=== PATIENT | female | born 1985 | race Caucasian/White ===

== ENCOUNTER 2018-11-23 20:14 | Inpatient (IN) | payer BC ==
[~2018-11-23 20:14] MED LIST: Lidocaine 2% MPF 10 ML AMP (For Epidural Use) ONE
[2018-11-23 21:14] VITALS: BMI 29.2
[2018-11-23] MEDS ORDERED: Ibuprofen 800 MG TAB PO PRN (21:16)
[2018-11-23] MEDS ORDERED: hydrALAZINE 20 MG/ML VIAL SLOW IVP PRN (21:16)
[2018-11-23] MEDS ORDERED: Acetaminophen 500 MG TAB PO PRN (21:16)
[2018-11-23] MEDS ORDERED: Misoprostol 200 MCG TAB PR PRN (21:16)
[2018-11-23] MEDS ORDERED: Promethazine HCl 25 MG/ML VIAL IM PRN (21:16)
[2018-11-23] MEDS ORDERED: NS / Oxytocin 40 units/1000ml 1,000 ML IV PRN (21:16)
[2018-11-23] MEDS ORDERED: Diphenoxylate HCl/Atropine Tablet PO PRN ×2 (21:16)
[2018-11-23] MEDS ORDERED: Ondansetron PF 4 MG/2 ML Vial IVP PRN (21:16)
[2018-11-23] MEDS ORDERED: Zolpidem Tartrate 5 MG TAB PO PRN (21:16)
[2018-11-23] MEDS ORDERED: Carboprost 250 MCG/ML AMP IM PRN (21:16)
[2018-11-23] MEDS ORDERED: Lidocaine 1% (PF) 30 ML VIAL SC PRN (21:16)
[2018-11-23] MEDS ORDERED: Docusate 100 MG CAP PO PRN (21:16)
[2018-11-23] MEDS ORDERED: Methylergonovine 0.2 MG/ML VIAL IM PRN (21:16)
[2018-11-23] MEDS ORDERED: HYDROcodone/Acetaminophen 5/325 mg Tablet PO PRN ×2 (21:16)
[2018-11-23] MEDS: Lactated Ringer's 1,000 ML IV SCH (21:20)
[2018-11-23] MEDS ORDERED: NS w/ Oxytocin 10 units 500 ML IV SCH (21:30)
[2018-11-23 21:37] LABS: Hemoglobin 12.2 g/dL (12.0-16.0); Mean Corpuscular HGB CONC 34.1 g/dL (32.0-36.0); Mean Corpuscular Hemoglobin 29.8 pg (27.0-31.0); Mean Corpuscular Volume 87.3 fL (78.0-98.0); Platelet Count 198 thou/uL (130-400); RBC Distribution Width 12.1 % (11.5-14.5); White Blood Cell (WBC) Count 9.7 thou/uL (4.8-10.8)
[2018-11-23 22:18] LABS: Syphilis Antibody Nonreactive (Nonreactive); Syphilis Antibody Index 0.03 S/CO (<1.00 Non-Reactive)
[2018-11-23] MEDS: Misoprostol 100 MCG TAB VAG SCH (22:23)
[2018-11-23] MEDS ORDERED: Calcium Carbonate 500 MG ChewTAB PO PRN (22:27)
[2018-11-23 23:01] LABS: HBSAg Index 0.24 S/CO (0-0.99); Hep B Surf Ag Non-Reactive S/CO (NonReactive)
[2018-11-24] MEDS: Misoprostol 100 MCG TAB VAG SCH ×2 (02:06→05:48)
[2018-11-24] MEDS: Butorphanol Tartrate 1 MG/ML VIAL SLOW IVP PRN ×3 (03:18→07:02)
--- NOTE | 2018-11-24 07:12 | PDOC.LDHP ---
Labor and Delivery H&P Chief complaint: scheduled induction HPI: 33 y/o at 38 weeks for medical induction of labor. Current gestational age (weeks): 38 Due date: 12/06/18 Grav: 3 Para: 2 Current complications: gestational hypertension Abnormal US findings: No Current medications: pre-betty vitamins Previous surgical history: none Allergies/Adverse Reactions: Allergies Allergy/AdvReac Type Severity Reaction Status Date / Time No Known Allergies Allergy Unverified 11/23/18 20:43 Social history: none - Physical Exam Vital signs reviewed and normal: yes General: NAD, resting Heart: RRR Lungs: CTAB Abdomen: gravid Extremeties: no edema FHT: category 1 - Assessment L&D Assessment: medically indicated induction - Plan Plan: admit to L&D, cervical ripening
[2018-11-24] MEDS: NS w/ Oxytocin 10 units 500 ML IV SCH (09:53)
[2018-11-24] MEDS: Lactated Ringer's 1,000 ML IV SCH (12:00)
[2018-11-24] MEDS ORDERED: Fentanyl 4 mcg/Bup 0.1% Cadd 100 ML ONE (12:23)
[2018-11-24] MEDS ORDERED: Bisacodyl 10 MG SUPP PR PRN (21:41)
[2018-11-24] MEDS ORDERED: Lanolin Ointment 7 GM TUBE TOP PRN (21:41)
[2018-11-24] MEDS ORDERED: Zolpidem Tartrate 5 MG TAB PO PRN (21:41)
[2018-11-24] MEDS ORDERED: Ondansetron PF 4 MG/2 ML Vial IVP PRN (21:41)
[2018-11-24] MEDS ORDERED: Benzocaine-Menthol 82.5 ML CAN TOP PRN (21:41)
[2018-11-24] MEDS ORDERED: Methylergonovine 0.2 MG/ML VIAL IM PRN (21:41)
[2018-11-24] MEDS ORDERED: Milk Of Magnesia 30 ML UDCUP PO PRN (21:41)
[2018-11-24] MEDS ORDERED: NS / Oxytocin 40 units/1000ml 1,000 ML IV SCH (21:41)
[2018-11-24] MEDS ORDERED: Preparation H Ointment 28 GM TUBE PR PRN (21:41)
[2018-11-24] MEDS ORDERED: diphenhydrAMINE 25 MG CAP PO PRN (21:41)
[2018-11-24] MEDS ORDERED: Promethazine HCl 25 MG/ML VIAL IM PRN (21:41)
[2018-11-24] MEDS ORDERED: hydrALAZINE 20 MG/ML VIAL SLOW IVP PRN (21:41)
[2018-11-24] MEDS ORDERED: Misoprostol 200 MCG TAB VAG PRN (21:41)
[2018-11-24] MEDS ORDERED: NS / Oxytocin 40 units/1000ml 1,000 ML ONE (21:55)
[2018-11-24] MEDS: Ibuprofen 800 MG TAB PO SCH (22:04)
[2018-11-24] MEDS: HYDROcodone/Acetaminophen 5/325 mg Tablet PO PRN (22:05)
[2018-11-25] MEDS: Misoprostol 100 MCG TAB VAG SCH ×2 (00:48→00:49)
[2018-11-25] MEDS: Lactated Ringer's 1,000 ML IV SCH (00:50)
[2018-11-25] MEDS: NS w/ Oxytocin 10 units 500 ML IV SCH (00:51)
[2018-11-25] MEDS: HYDROcodone/Acetaminophen 5/325 mg Tablet PO PRN ×4 (01:58→19:05)
[2018-11-25] MEDS: Ibuprofen 800 MG TAB PO SCH ×3 (05:23→23:50)
[2018-11-25 06:51] LABS: #Basophils 0.1 thou/uL (0.0-0.2); #Eosinphils 0.1 thou/uL (0.0-0.7); #Lymphocytes 2.6 thou/uL (1.20-3.40); #Monocytes 0.7 thou/uL (0.11-0.59); #Neutrophils 8.7 thou/uL (1.40-6.50); %Basophils 0.5 % (0.0-1.0); %Eosinophils 0.6 % (0.0-10.0); %Lymphocytes 21.5 % (21.0-51.0); %Monocytes 5.5 % (0.0-10.0); %Neutrophils 71.8 % (42.0-75.0); Hemoglobin 12.2 g/dL (12.0-16.0); Mean Corpuscular HGB CONC 34.4 g/dL (32.0-36.0); Mean Corpuscular Hemoglobin 30.2 pg (27.0-31.0); Mean Corpuscular Volume 87.7 fL (78.0-98.0); Platelet Count 135 thou/uL (130-400); RBC Distribution Width 12.3 % (11.5-14.5); Red Blood Cell (RBC) Count 4.04 mill/uL (4.20-5.40); White Blood Cell (WBC) Count 12.2 thou/uL (4.8-10.8)
[2018-11-25] MEDS: Ferrous Sulfate 325 MG TAB PO SCH ×2 (08:43→17:15)
[2018-11-25] MEDS: Docusate Calcium (SURFAK) 240 MG CAP PO SCH ×2 (08:43→21:29)
[2018-11-25] MEDS ORDERED: Adacel (T-DAP) 0.5 ML SYRINGE IM ONE (09:00)
[2018-11-25] MEDS ORDERED: Varicella virus, LIVE 0.5 ML VIAL SC ONE (09:00)
[2018-11-25] MEDS ORDERED: Sodium Chloride 0.9% 10 ML ONE ×3 (10:41→22:51)
[2018-11-25] MEDS: Ketorolac Tromethamine 30 MG/ML VIAL IVP SCH ×3 (10:43→23:01)
--- NOTE | 2018-11-25 18:59 | PDOC.PP ---
Post Progress Note Post Day #: 1 PO intake tolerated: yes Flatus: yes Ambulation: yes Vital Signs (12 hours) Temp Pulse Resp BP Pulse Ox 11/25/18 12:13 97.6 F 81 20 136/85 11/25/18 08:22 98.6 F 74 20 133/80 100 11/25/18 07:15 97.7 F 72 20 116/74 97 Weight Weight 187 lb - Physical Examination General: NAD Cardiovascular: no m/r/g, RRR Respiratory: clear to auscultation bilaterally, non-labored breathing Abdominal: + bowel sounds, lochia, no distention Extremities: negative homans (B) Neurological: no gross focal deficits Psychiatric: A&Ox3, normal affect Result Diagrams: 11/25/18 06:34 Additional Labs: Post Labs Blood Type B POSITIVE 11/23/18 22:12 Hep Bs Antigen Non-Reactive S/CO (NonReactive) 11/23/18 21:28
--- NOTE | 2018-11-26 02:53 | DN ---
DATE OF PROCEDURE: 11/24/2018 TIME OF SERVICE: At 1811 [place] Day[employer] Savings Time. PREOPERATIVE DIAGNOSES: Intrauterine at 38 weeks 2 days with chronic hypertension. POSTOPERATIVE DIAGNOSES: Intrauterine at 38 weeks 2 days with chronic hypertension. PROCEDURE: Medical induction at 38 weeks resulting in spontaneous vaginal delivery. FINDINGS: Viable female , weighing 3352 g or 7 pounds 6 ounces, Apgars of 8 and 9. QUANTITATIVE BLOOD LOSS: 155 mL. COMPLICATIONS: None. PROCEDURE IN DETAIL: The patient presented to [facility] where she was admitted to the labor and delivery service. The patient underwent a normal and uneventful labor with normal cervical dilatation until she was found to be completely dilated. She was then allowed to push and was able to bring the baby down and delivered the baby in a vertex presentation without difficulties. Once the head delivered in occiput anterior position, the shoulders followed spontaneously along with the rest of the baby's body. Once out the baby's mouth and nose were bulb suctioned. The cord was clamped and cut and baby was handed to waiting attendants. Cord blood was collected. Gentle fundal massage was performed and the placenta delivered intact without problems. Hemostasis was assured. Quantitative blood loss was calculated. Inspection of the cervix, vaginal vault, and perineum did not reveal any lacerations needing suturing. Once again, hemostasis was within normal limits and the patient was allowed to recover in the labor and delivery room. Baby went to nursery. Job ID: [id number]
[2018-11-26] MEDS ORDERED: Sodium Chloride 0.9% 10 ML ONE ×2 (04:55→11:03)
[2018-11-26] MEDS: Ketorolac Tromethamine 30 MG/ML VIAL IVP SCH ×2 (05:11→11:07)
[2018-11-26] MEDS: HYDROcodone/Acetaminophen 5/325 mg Tablet PO PRN ×3 (05:13→17:10)
[2018-11-26] MEDS: Ibuprofen 800 MG TAB PO SCH ×3 (06:11→17:10)
[2018-11-26] MEDS: Docusate Calcium (SURFAK) 240 MG CAP PO SCH (10:09)
[2018-11-26] MEDS: Ferrous Sulfate 325 MG TAB PO SCH ×2 (10:09→17:11)
--- NOTE | 2018-11-26 15:46 | PDOC.PP ---
Post Progress Note Post Day #: 2 PO intake tolerated: yes Flatus: yes Ambulation: yes Vital Signs (12 hours) Temp Pulse Resp BP Pulse Ox 11/26/18 11:00 98.3 F 81 20 142/90 H 11/26/18 08:10 98 11/26/18 07:48 97.8 F 80 16 142/95 H 98 Weight Weight 187 lb - Physical Examination Cardiovascular: no m/r/g, RRR Respiratory: clear to auscultation bilaterally, non-labored breathing Abdominal: + bowel sounds, lochia, no distention Extremities: negative homans (B) Neurological: no gross focal deficits Psychiatric: A&Ox3, normal affect Result Diagrams: 11/25/18 06:34 Additional Labs: Post Labs Blood Type B POSITIVE 11/23/18 22:12 Hep Bs Antigen Non-Reactive S/CO (NonReactive) 11/23/18 21:28
[2018-11-26 16:55] VITALS: BP 133/83; TEMP 97.9
== END 2018-11-26 17:30 | disposition home or self-care (01) | DRG 807 ==
LOC: L&D 20:14 → 3SW 11-24 21:40
PROVIDERS: ADMIT Obstetrics & Gynecology; ATTEND Obstetrics & Gynecology
PROC: 10E0XZZ Delivery of Products of Conception, External Approach (ICD-10-PCS; principal; 2018-11-25)
PROC: 3E033VJ Introduction of Other Hormone into Peripheral Vein, Percutaneous Approach (ICD-10-PCS; 2018-11-25)
DX: O13.4 Gestational [pregnancy-induced] hypertension without significant proteinuria, complicating childbirth (principal); Z37.0 Single live birth; Z3A.38 38 weeks gestation of pregnancy
CPT/HCPCS: 36415; 51702; 85025; 85027; 86780; 86850; 86900; 86901; 87340; 90715; J0360; J0595; J1885; J2001; J2590